=== PATIENT | male | born 1985 | race Caucasian/White ===

== ENCOUNTER 2017-12-15 19:56 | Emergency (ER) | payer OTHER, MEDICAID, SELFPAY | END 2017-12-15 21:34 | disposition home or self-care (01) | PROVIDERS: Emergency Provider Emergency Medicine; Visit Provider Emergency Medicine | DX: J06.9 Acute upper respiratory infection, unspecified (principal); J01.90 Acute sinusitis, unspecified | CPT/HCPCS: 99282 ==